=== PATIENT | male | born 1965 | race Caucasian/White ===

== ENCOUNTER 2016-05-06 16:55 | Emergency (ER) | payer BC, OTHER ==
[2016-05-06 17:05] VITALS: BP 176/117
--- NOTE | 2016-05-06 17:05 | ER Document Report ---
ED Medical Screen (RME) - General Stated Complaint: THROAT PAIN AND FEVER Notes: 51 yo male c/o chills, headache x several days. treated recently at urgent care for sore throat, taking antibiotics as prescribed. + hx/o HTN, recently prescribed meds but hasn't started them due to illness. headache not normal for patient. right frontal. pressure behind eyes. + neck soreness but not stiff. - Related Data Allergies/Adverse Reactions: codeine Allergy (Verified 05/06/16 17:00)
[2016-05-06 17:19] LABS: ABSOLUTE BASOPHILS # (AUTO) 0.1 10^3/uL (0.0-0.2); ABSOLUTE EOSINOPHILS # (AUTO) 0.2 10^3/uL (0.0-0.6); ABSOLUTE LYMPHOCYTES (AUTO) 2.2 10^3/uL (0.5-4.7); ABSOLUTE MONOCYTES (AUTO) 0.9 10^3/uL (0.1-1.4); ABSOLUTE NEUT (AUTO) 7.2 10^3/uL (1.7-8.2); BASOPHILS % (AUTO) 0.9 % (0-2); EOSINOPHILS % (AUTO) 1.4 % (0-6); HEMATOCRIT 46.5 % (37.9-51.0); HEMOGLOBIN 16.2 g/dL (13.5-17.0); HGB HCT DIFFERENCE 2.1; LYMPHOCYTES % (AUTO) 20.5 % (13-45); MEAN CORPUSCULAR HEMOGLOBIN 32.7 pg (27.0-33.4); MEAN CORPUSCULAR HGB CONC 34.9 g/dL (32.0-36.0); MEAN CORPUSCULAR VOLUME 94 fl (80-97); MONOCYTES % (AUTO) 8.9 % (3-13); RED BLOOD COUNT 4.96 10^6/uL (4.35-5.55); RED CELL DISTRIBUTION WIDTH 12.4 % (11.5-14.0); SEGMENTED NEUTROPHILS % (AUTO) 68.3 % (42-78); WHITE BLOOD COUNT 10.6 10^3/uL (4.0-10.5)
[2016-05-06 17:34] LABS: ALANINE AMINOTRANSFERASE 53 U/L (21-72); ALBUMIN 4.9 g/dL (3.5-5.0); ALKALINE PHOSPHATASE 79 U/L (38-126); ANION GAP 14 (5-19); ASPARTATE AMINO TRANSFERASE 29 U/L (17-59); BILIRUBIN,TOTAL 1.1 mg/dL (0.2-1.3); BLOOD UREA NITROGEN 9 mg/dL (7-20); CALCIUM 10.2 mg/dL (8.4-10.2); CARBON DIOXIDE 27 mmol/L (22-30); CHLORIDE 102 mmol/L (98-107); GLUCOSE 106 mg/dL (75-110); POTASSIUM 4.5 mmol/L (3.6-5.0); SODIUM 142.7 mmol/L (137-145); TOTAL PROTEIN 8.4 g/dL (6.3-8.2)
[2016-05-06] MEDS ORDERED: ACETAMINOPHEN 325 MG TABLET PO ONE (19:25)
[2016-05-06] MEDS ORDERED: ONDANSETRON ODT 4 MG TAB (6 TAB/DSPK) PO PRN (19:26)
--- NOTE | 2016-05-06 19:27 | ER Document Report ---
ED General - General Chief Complaint: Sore Throat Stated Complaint: THROAT PAIN AND FEVER Notes: Patient is a 51-year-old male past medical history of hypertension who presents with 3 days of sore throat, nasal congestion, and loss of appetite. States he was seen in urgent care and started on amoxicillin even though his strep test was negative. His symptoms have not improved since that time. Nothing worsens the symptoms. He notes associated headache which resolves at home when he takes ibuprofen. Denies any neck pain is different from his chronic daily neck pain, meningismus, altered mental status or fever recorded at home. He does state that he felt he has had a subjective fever. No history of similar symptoms in the past. TRAVEL OUTSIDE OF THE [place] IN LAST 30 DAYS: No - Related Data Allergies/Adverse Reactions: codeine Allergy (Verified 05/06/16 17:00) Past Medical History - General Information source: Patient - Social History Smoking Status: Never Smoker Chew tobacco use (# tins/day): No Frequency of alcohol use: None Drug Abuse: None Lives with: Spouse/Significant other Family History: Reviewed & Not Pertinent Patient has suicidal ideation: No Patient has homicidal ideation: No - Past Medical History Cardiac Medical History: Reports: Hx Hypertension Renal/ Medical History: Denies: Hx Peritoneal Dialysis Surgical Hx: Negative - Immunizations Hx Diphtheria, Pertussis, Tetanus Vaccination: No Review of Systems - Review of Systems Notes: Constitutional: Negative for fever. HENT: Positive for sore throat. Eyes: Negative for visual changes. Cardiovascular: Negative for chest pain. Respiratory: Negative for shortness of breath. Gastrointestinal: Negative for abdominal pain, vomiting or diarrhea. Genitourinary: Negative for dysuria. Musculoskeletal: Negative for back pain. Skin: Negative for rash. Neurological: Positive for headaches, negative for weakness or numbness. 10 point ROS negative except as marked above and in HPI. Physical Exam - Vital signs Vitals: Temp Pulse Resp BP Pulse Ox 97.9 F 106 H 20 176/117 H 100 05/06/16 17:04 05/06/16 17:04 05/06/16 17:04 05/06/16 17:04 05/06/16 17:04 Interpretation: Hypertensive, Tachycardic Notes: PHYSICAL EXAMINATION: GENERAL: Well-appearing, well-nourished and in no acute distress. HEAD: Atraumatic, normocephalic. EYES: Pupils equal round and reactive to light, extraocular movements intact, sclera anicteric, conjunctiva are normal. ENT: nares patent, bilateral tonsillar exudates no palatal petechiae. Moist mucous membranes. NECK: Normal range of motion, supple without lymphadenopathy. No meningismus. Full flexion and extension of the neck without pain or difficulty. LUNGS: Breath sounds clear to auscultation bilaterally and equal. No wheezes rales or rhonchi. HEART: Regular rate and rhythm without murmurs ABDOMEN: Soft, nontender, normoactive bowel sounds. No guarding, no rebound. No masses appreciated. EXTREMITIES: Normal range of motion, no pitting or edema. No cyanosis. NEUROLOGICAL: No focal neurological deficits. Moves all extremities spontaneously and on command. PSYCH: Normal mood, normal affect. SKIN: Warm, Dry, normal turgor, no rashes or lesions noted. Course - Re-evaluation Re-evalutation: 05/06/16 19:23 Patient presents with 4 days of throat irritation, loss of appetite and headache. He also reports subjective fever at home. At time of assessment patient's vitals are within normal limits. He has already been treated with amoxicillin even though he had a negative strep test. On examination, patient has no meningismus, full neck range of motion without difficulty. He has no focal neurologic deficits. Mentation is clear. No cough or shortness of breath suggest acute pneumonia. His exam is likewise not consistent with an acute encephalitis or meningitis. He has no focal abdominal tenderness to suggest mononucleosis with splenomegaly. Likewise he is not having any actual vomiting or diarrhea. Labs obtained in triage are again unremarkable. Based on exam and history do not suspect any acute life-threatening pathology at this time. Most likely a viral illness.At this time will discharge with return precautions and follow-up recommendations. Verbal discharge instructions given a the bedside and opportunity for questions given. Medication warnings reviewed. Patient is in agreement with this plan and has verbalized understanding of return precautions and the need for primary care follow-up in the next 24-72 hours. - Vital Signs Vital signs: Temp Pulse Resp BP Pulse Ox 97.9 F 106 H 20 176/117 H 100 05/06/16 17:04 05/06/16 17:04 05/06/16 17:04 05/06/16 17:04 05/06/16 17:04 - Laboratory Result Diagrams: 05/06/16 17:05 05/06/16 17:05 Laboratory results interpreted by me: 05/06/16 05/06/16 17:05 17:05 WBC 10.6 H Total Protein 8.4 H Discharge - Discharge Clinical Impression: Upper respiratory infection Qualifiers: URI type: unspecified viral URI Qualified Code(s): J06.9 - Acute upper respiratory infection, unspecified Condition: Good Disposition: HOME, SELF-CARE Additional Instructions: Your symptoms are most likely due to a viral infection it should resolve over the next 7-14 days. You should take [id number] guanfacine per bottle instructions to help thin the mucus. For nasal congestion: I would recommend that you get [id number] oxymetazoline also known is afrin. Use only per bottle instructions and be sure to never use this for more than 3 days if you can develop severe rebound congestion. You may also use tylenol or ibuprofen as needed for aches and thorat discomfort. Please be sure to drink plenty of fluids and get rest. Return to the emergency department he began having difficulty breathing, chest pain, persistent vomiting, or any other symptoms that are concerning to you. You were seen today for blood pressure that was high. This is a long-term risk factor for multiple medical problems including heart attack and stroke. However, the blood pressure in of itself will not cause you to have an acute stroke or heart attack over the course of just several days or weeks. You need to have a gradual reduction of your blood pressure back to normal levels over the next several months in conjunction with your primary care physician. Return if you develop headache, weakness, numbness, chest pain, pass out, or have any other symptoms that are concerning to you.
== END 2016-05-06 21:33 | disposition home or self-care (01) ==
LOC: ER 16:55
DX: J06.9 Acute upper respiratory infection, unspecified (principal); B97.89 Other viral agents as the cause of diseases classified elsewhere; J02.9 Acute pharyngitis, unspecified; R09.81 Nasal congestion; R63.0 Anorexia; R51 Headache; I10 Essential (primary) hypertension; M54.2 Cervicalgia; G89.29 Other chronic pain; Z88.5 Allergy status to narcotic agent; R00.0 Tachycardia, unspecified
CPT/HCPCS: 36415; 80053; 85025; 99283